=== PATIENT | female | born 1955 | race Caucasian/White ===

== ENCOUNTER 2025-05-24 09:49 | Outpatient (CLI) | payer MEDICARE, BC ==
[~2025-05-24 09:49] MED LIST: ASPI-1264 PO; CALC-1051 PO; DOCU-28 PO; ESOM20CA PO; EZET-80 PO; OMEG-270 PO
--- NOTE | 2025-05-24 14:11 | RADIOLOGY REPORT ---
CLINICAL HISTORY: OTHER SPECIFIED DISORDERS OF SYNOVIUM AND TENDON,EFFUSION, LEFT ANKLE. 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 Possible re-injury. TECHNIQUE: Multi sequence multi planar MRI images of the left lower leg were obtained without IV contrast. COMPARISON: None FINDINGS: No acute fracture or focal marrow contusion. No significant intraosseous lesion identified. Postsurgical changes partially visualized at the calcaneus consistent with reported history of surgery for larry deformity and reattachment of the achilles tendon. There is moderate thickening of the Achilles tendon near its insertion, within normal limits 4 postoperative appearance. No distal achilles tendon tear. There is mild peritendinitis. There is a focal defect in the medial gastrocnemius myotendinous junction approximately 12.7 cm proximal to the insertion with a gap extending up to 0.9 cm in proximal to distal dimension and 1.6 cm in transverse dimension, likely due to the patient's reported history of gastrocnemius release surgery. There is a small amount of T2 hyperintense signal, likely fluid. There is intramuscular edema involving the soleus muscle along most of its course in the left lower leg. The rest of the visualized musculature in the left lower leg Appears within normal limits. No significant atrophy. IMPRESSION: 1. Defect in the medial head gastrocnemius myotendinous junction, likely sequela of reported gastrocnemius release surgery. Correlate with clinical findings. 2. Prominent intramuscular edema involving the soleus muscle, may be due to strain, acute or subacute denervation changes, or nonspecific inflammation/ myositis. Correlate with clinical findings. 3. Postsurgical changes consistent with reported history of surgery for Larry deformity and reattachment of the Achilles tendon. Thickened appearing achilles tendon, likely due to sequela of postsurgical changes and/or tendinopathy. No distal achilles tendon tear. Likely mild peritendinitis.
== END 2025-05-24 23:59 | disposition home or self-care (01) ==
LOC: MRI02 09:49
PROVIDERS: ATTEND Podiatrist Foot & Ankle Surgery
DX: M25.472 Effusion, left ankle (principal); M67.88 Other specified disorders of synovium and tendon, other site; M79.10 Myalgia, unspecified site; N39.0 Urinary tract infection, site not specified
CPT/HCPCS: 73718